=== PATIENT | male | born 1945 | race Caucasian/White ===

== ENCOUNTER 2023-06-01 07:44 | Inpatient (IN) | payer OTHER ==
[~2023-06-01] VITALS: Ht 180.3 cm; Wt 99.8 kg
[2023-06-01 07:51] VITALS: BP_SYST 155; PULSE 86; RESP 20; TEMP 98; O2SAT 97
[2023-06-01] MEDS: ASPIRIN 325 MG TABLET (ECOTRIN) PO ONE (08:04)
[2023-06-01] MEDS ORDERED: ATOR40TA68 PO (08:16)
[2023-06-01] MEDS ORDERED: TAMS0.4C96 PO (08:16)
[2023-06-01] MEDS ORDERED: APIX5TAB PO (08:16)
[2023-06-01] MEDS ORDERED: SOTA80TA PO (08:16)
[2023-06-01] MEDS ORDERED: POLY17PO4 PO (08:22)
[2023-06-01] MEDS ORDERED: ZINC50TA2 PO (08:22)
[2023-06-01] MEDS ORDERED: GLUC-160 PO (08:22)
[2023-06-01] MEDS ORDERED: MULT-1164 PO (08:22)
[2023-06-01] MEDS ORDERED: LACT1CAP69 PO (08:22)
[2023-06-01 08:26] LABS: BASOPHILS % (AUTO) 0.4 % (0.0-2.0); EOSINOPHILS # (AUTO) 0.1 K/uL (0.0-0.4); EOSINOPHILS % (AUTO) 1.3 % (0.0-4.0); HEMATOCRIT 49.4 % (36-54); HEMOGLOBIN 16.8 g/dL (14.0-18.0); LYMPHOCYTES # (AUTO) 2.2 K/uL (1.0-5.5); LYMPHOCYTES % (AUTO) 24.8 % (20.5-51.5); MEAN CORPUSCULAR HEMOGLOBIN 30 pg (27-31); MEAN CORPUSCULAR HGB CONC 34 % (32-36); MEAN CORPUSCULAR VOLUME 89 fL (79.0-98.0); MONOCYTES # (AUTO) 0.6 K/uL (0.0-1.0); MONOCYTES % (AUTO) 7.4 % (1.7-9.3); NEUTROPHILS # (AUTO) 5.8 K/uL (1.8-7.7); NEUTROPHILS % (AUTO) 66.1 % (40.0-70.0); PLATELET COUNT (AUTO) 186 K/uL (130-430); RED BLOOD CELL COUNT(AUTO) 5.58 MIL/uL (4.2-6.2); RED CELL DISTRIBUTION WIDTH 13.8 % (9.0-15.0); WHITE BLOOD COUNT (AUTO) 8.8 K/uL (4.8-10.8)
[2023-06-01 08:29] LABS: ANION GAP 7 (5-15); CALCIUM 8.8 mg/dL (8.4-11.0); CARBON DIOXIDE 28 mmol/L (23-29); CHLORIDE 103 mmol/L (98-107); CREATININE 1.15 mg/dL (0.55-1.30); GLUCOSE 177 mg/dL (74-106); POTASSIUM 4.3 mmol/L (3.5-5.1); SODIUM SERUM 138 mmol/L (136-145); UREA NITROGEN, BLOOD 16 mg/dL (8-21)
[2023-06-01 08:37] LABS: ALANINE AMINOTRANSFERASE 26 U/L (12-78); ALBUMIN 3.3 g/dL (3.4-4.8); ASPARTATE AMINOTRANSFERASE 25 U/L (10-37); BILIRUBIN,DIRECT 0.2 mg/dL (0.0-0.3); TOTAL BILIRUBIN 1.1 mg/dL (0.0-1.0); TOTAL PROTEIN, SERUM 6.7 g/dL (6.4-8.3)
[2023-06-01 12:24] LABS: CHOLESTEROL 129 mg/dL (<200); HDL CHOLESTEROL 58 mg/dL (>45); TRIGLYCERIDES 86 mg/dL (30-150)
[2023-06-01] MEDS: ENOXAPARIN SODIUM 100 MG/ML SYRINGE SUBCUT ONE (13:21)
[2023-06-01] MEDS: *LOVENOX 1MG/KG Q12H/PHARMACY XX ONE (13:31)
[2023-06-01 13:35] LABS: INR 1.1 (0.80-1.20); PROTHROMBIN TIME 11.2 SECS (9.5-12.5)
[2023-06-01 15:30] VITALS: BP_SYST 126; PULSE 75; RESP 18; TEMP 96.8; O2SAT 98
[2023-06-01 16:46] VITALS: BP_SYST 126; PULSE 75; RESP 18; TEMP 96.8
[2023-06-01 16:53] VITALS: O2SAT 98
[2023-06-01 20:00] VITALS: BP_SYST 108; PULSE 81; RESP 18; TEMP 98.4; O2SAT 98
[2023-06-01] MEDS: LOSARTAN POTASSIUM 25 MG TABLET PO SCH (22:07)
[2023-06-01] MEDS: ATORVASTATIN 20 MG TABLET PO SCH (22:07)
[2023-06-01] MEDS: ENOXAPARIN SODIUM 100 MG/ML SYRINGE SUBCUT SCH (22:08)
[2023-06-01] MEDS: CARVEDILOL 6.25 MG TABLET (COREG) PO SCH (22:08)
[2023-06-02 04:55] LABS: BASOPHILS % (AUTO) 0.5 % (0.0-2.0); EOSINOPHILS # (AUTO) 0.1 K/uL (0.0-0.4); EOSINOPHILS % (AUTO) 1.4 % (0.0-4.0); HEMATOCRIT 48.7 % (36-54); HEMOGLOBIN 16.6 g/dL (14.0-18.0); LYMPHOCYTES # (AUTO) 2.5 K/uL (1.0-5.5); LYMPHOCYTES % (AUTO) 27.9 % (20.5-51.5); MEAN CORPUSCULAR HEMOGLOBIN 30 pg (27-31); MEAN CORPUSCULAR HGB CONC 34 % (32-36); MEAN CORPUSCULAR VOLUME 89 fL (79.0-98.0); MONOCYTES # (AUTO) 0.8 K/uL (0.0-1.0); NEUTROPHILS # (AUTO) 5.5 K/uL (1.8-7.7); NEUTROPHILS % (AUTO) 61.2 % (40.0-70.0); PLATELET COUNT (AUTO) 177 K/uL (130-430); RED BLOOD CELL COUNT(AUTO) 5.47 MIL/uL (4.2-6.2); RED CELL DISTRIBUTION WIDTH 13.8 % (9.0-15.0)
[2023-06-02 05:15] LABS: ANION GAP 8 (5-15); CALCIUM 8.8 mg/dL (8.4-11.0); CARBON DIOXIDE 28 mmol/L (23-29); CHLORIDE 104 mmol/L (98-107); CREATININE 1.07 mg/dL (0.55-1.30); GLUCOSE 103 mg/dL (74-106); POTASSIUM 4.1 mmol/L (3.5-5.1); SODIUM SERUM 140 mmol/L (136-145); UREA NITROGEN, BLOOD 17 mg/dL (8-21)
[2023-06-02] MEDS ORDERED: SOTALOL HCL 80 MG TABLET PO SCH (09:00)
[2023-06-02] MEDS: POLYETHYLENE GLYCOL 3350, 17 GM/ POWD.PACK PO SCH (09:59)
[2023-06-02] MEDS: MULTIVITS,CA,MINERALS/IRON/FA 1 TABLET PO SCH (09:59)
[2023-06-02] MEDS: ASPIRIN 81 MG TABLET(ECOTRIN) PO SCH (09:59)
[2023-06-02] MEDS: TAMSULOSIN HCL 0.4 MG CAP PO SCH (10:00)
[2023-06-02] MEDS ORDERED: COR6.25 PO (10:50)
[2023-06-02 11:10] VITALS: BP_SYST 134; PULSE 98; RESP 16; TEMP 96.8; O2SAT 93
[2023-06-02 15:15] VITALS: BP_SYST 103; PULSE 56; RESP 16; TEMP 98; O2SAT 100
[2023-06-02 20:05] VITALS: BP_SYST 114; PULSE 85; RESP 20; TEMP 98.2; O2SAT 98
[2023-06-03] VITALS (8 sets, daily range): BP systolic 107–144; PULSE 73–110; RESP 16–20; TEMP 97.4–98.2; O2SAT 98–99
[2023-06-03 06:13] LABS: BASOPHILS # (AUTO) 0.3 K/uL (0.0-0.2); BASOPHILS % (AUTO) 3.1 % (0.0-2.0); EOSINOPHILS # (AUTO) 0.1 K/uL (0.0-0.4); EOSINOPHILS % (AUTO) 1.6 % (0.0-4.0); HEMATOCRIT 50.2 % (36-54); HEMOGLOBIN 17.1 g/dL (14.0-18.0); LYMPHOCYTES # (AUTO) 2.2 K/uL (1.0-5.5); LYMPHOCYTES % (AUTO) 24.4 % (20.5-51.5); MEAN CORPUSCULAR HEMOGLOBIN 30 pg (27-31); MEAN CORPUSCULAR HGB CONC 34 % (32-36); MEAN CORPUSCULAR VOLUME 89 fL (79.0-98.0); MONOCYTES # (AUTO) 0.7 K/uL (0.0-1.0); MONOCYTES % (AUTO) 7.1 % (1.7-9.3); NEUTROPHILS # (AUTO) 5.9 K/uL (1.8-7.7); NEUTROPHILS % (AUTO) 63.8 % (40.0-70.0); PLATELET COUNT (AUTO) 197 K/uL (130-430); RED BLOOD CELL COUNT(AUTO) 5.65 MIL/uL (4.2-6.2); RED CELL DISTRIBUTION WIDTH 14.1 % (9.0-15.0); WHITE BLOOD COUNT (AUTO) 9.2 K/uL (4.8-10.8)
[2023-06-03 06:23] LABS: ALANINE AMINOTRANSFERASE 34 U/L (12-78); ALBUMIN 3.2 g/dL (3.4-4.8); ANION GAP 10 (5-15); ASPARTATE AMINOTRANSFERASE 23 U/L (10-37); CALCIUM 9.1 mg/dL (8.4-11.0); CARBON DIOXIDE 25 mmol/L (23-29); CHLORIDE 104 mmol/L (98-107); CREATININE 1.08 mg/dL (0.55-1.30); GLUCOSE 120 mg/dL (74-106); POTASSIUM 4.2 mmol/L (3.5-5.1); SODIUM SERUM 139 mmol/L (136-145); TOTAL BILIRUBIN 1.1 mg/dL (0.0-1.0); TOTAL PROTEIN, SERUM 6.7 g/dL (6.4-8.3); UREA NITROGEN, BLOOD 19 mg/dL (8-21)
[2023-06-04 00:03] VITALS: BP_SYST 110; PULSE 91; RESP 19; TEMP 97.2; O2SAT 94
[2023-06-04 01:07] VITALS: PULSE 86
[2023-06-04 04:27] LABS: BASOPHILS % (AUTO) 0.4 % (0.0-2.0); EOSINOPHILS # (AUTO) 0.1 K/uL (0.0-0.4); EOSINOPHILS % (AUTO) 1.1 % (0.0-4.0); HEMATOCRIT 48.6 % (36-54); HEMOGLOBIN 16.6 g/dL (14.0-18.0); LYMPHOCYTES # (AUTO) 2.8 K/uL (1.0-5.5); LYMPHOCYTES % (AUTO) 30.8 % (20.5-51.5); MEAN CORPUSCULAR HEMOGLOBIN 30 pg (27-31); MEAN CORPUSCULAR HGB CONC 34 % (32-36); MEAN CORPUSCULAR VOLUME 89 fL (79.0-98.0); MONOCYTES # (AUTO) 0.8 K/uL (0.0-1.0); MONOCYTES % (AUTO) 9.2 % (1.7-9.3); NEUTROPHILS # (AUTO) 5.3 K/uL (1.8-7.7); NEUTROPHILS % (AUTO) 58.5 % (40.0-70.0); PLATELET COUNT (AUTO) 200 K/uL (130-430); RED BLOOD CELL COUNT(AUTO) 5.46 MIL/uL (4.2-6.2); RED CELL DISTRIBUTION WIDTH 14.1 % (9.0-15.0); WHITE BLOOD COUNT (AUTO) 9.1 K/uL (4.8-10.8)
[2023-06-04 04:42] LABS: ALANINE AMINOTRANSFERASE 46 U/L (12-78); ALBUMIN 3.3 g/dL (3.4-4.8); ANION GAP 7 (5-15); ASPARTATE AMINOTRANSFERASE 33 U/L (10-37); CALCIUM 9.3 mg/dL (8.4-11.0); CARBON DIOXIDE 30 mmol/L (23-29); CHLORIDE 104 mmol/L (98-107); CREATININE 1.23 mg/dL (0.55-1.30); GLUCOSE 107 mg/dL (74-106); POTASSIUM 4.3 mmol/L (3.5-5.1); SODIUM SERUM 141 mmol/L (136-145); TOTAL PROTEIN, SERUM 6.9 g/dL (6.4-8.3); UREA NITROGEN, BLOOD 24 mg/dL (8-21)
[2023-06-04 07:45] VITALS: BP_SYST 117; PULSE 86; RESP 16; TEMP 97.8; O2SAT 99
[2023-06-04 08:00] VITALS: BP_SYST 117; PULSE 86; RESP 16; TEMP 97.8; O2SAT 99
[2023-06-04 11:08] VITALS: BP_SYST 117; PULSE 83; RESP 18; TEMP 96.5; O2SAT 99
== END 2023-06-04 10:40 | disposition short-term general hospital (02) | DRG 303 ==
LOC: SED 07:44 → STU 13:14
PROVIDERS: ADMIT Specialist; ATTEND Specialist
DX: I25.119 Atherosclerotic heart disease of native coronary artery with unspecified angina pectoris (principal); E44.1 Mild protein-calorie malnutrition; I10 Essential (primary) hypertension; I48.91 Unspecified atrial fibrillation; E11.9 Type 2 diabetes mellitus without complications; E78.5 Hyperlipidemia, unspecified; Z88.0 Allergy status to penicillin; Z79.899 Other long term (current) drug therapy; Z79.01 Long term (current) use of anticoagulants; Z95.0 Presence of cardiac pacemaker; Z68.30 Body mass index [BMI] 30.0-30.9, adult
CPT/HCPCS: 36415; 71045; 80048; 80053; 80061; 80076; 83037; 83880; 84484; 85025; 85610; 85730; 93005; 93306; 94760; 96372; 99285; G0378; J1650